=== PATIENT | female | born 2005 | race Caucasian/White ===

== ENCOUNTER 2024-10-06 17:57 | Emergency (ER) | payer OTHER ==
[~2024-10-06] VITALS: Ht 160 cm; Wt 70.5 kg
[~2024-10-06 17:57] MED LIST: AMIT10TA6 PO; ASPI-144 PO; MAGN400T56 PO; RIZA5TAB17 PO; TOPI25TA15 PO; VITAMIN B PO
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
[2024-10-06 19:32] VITALS: BP 134/82; PULSE 92; RESP 18; TEMP 98.6; O2SAT 99
== END 2024-10-06 19:33 | disposition home or self-care (01) ==
LOC: ER 17:58
DX: S20.229A Contusion of unspecified back wall of thorax, initial encounter (principal); Z79.82 Long term (current) use of aspirin; W01.0XXA Fall on same level from slipping, tripping and stumbling without subsequent striking against object, initial encounter; Y93.89 Activity, other specified; Y92.89 Other specified places as the place of occurrence of the external cause; Y99.8 Other external cause status
CPT/HCPCS: 99282